=== PATIENT | male | born 1975 | race Caucasian/White ===

== ENCOUNTER 2017-03-25 19:38 | Emergency (ER) | payer OTHER ==
[~2017-03-25] VITALS: Ht 165.1 cm; Wt 72.6 kg
[2017-03-25 19:55] VITALS: BP 136/80
--- NOTE | 2017-03-25 20:14 | NUR ---
REPORTED TO [facility] AND SPOKEN TO [facility] AND ADVISED TO GO THEIR OFFICE, IF HE MAKE A COMPLAINT.
--- NOTE | 2017-03-25 20:52 | NUR ---
PT TAKEN TO BED 7
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
--- NOTE | 2017-03-25 20:57 | NUR ---
PT TAKEN TO XRAY
--- NOTE | 2017-03-25 21:20 | NUR ---
PT RETURN FROM XRAY
--- NOTE | 2017-03-25 21:30 | NUR ---
Fadumo awad in [facility] - 03/25/[address] Howell evaluating patient at bedside.
[2017-03-25] MEDS ORDERED: LIDOCAINE/EPI 1% 1:100000 20 ML VIAL INJ ONE (21:35)
[2017-03-25] MEDS ORDERED: LIDOCAINE 1% 50 ML ONE (21:49)
[2017-03-25] MEDS ORDERED: LIDOCAINE/EPI 2% 1:100000 20 ML VIAL INJ ONE (21:58)
--- NOTE | 2017-03-25 22:02 | NUR ---
Dr. Howell evaluating patient at bedside.
--- NOTE | 2017-03-25 22:05 | NUR ---
[facility] WITH EPI 2% 1:100,000 ADMINISTERED BY ER MD AT BEDSIDE.
--- NOTE | 2017-03-25 22:30 | NUR ---
N ADR NOTED TO [facility] WITH EPI.
[2017-03-25] MEDS ORDERED: BACITRACIN OINT 500 UNITS/GM PKT TP ONE (22:46)
[2017-03-25 22:51] VITALS: BP 128/74
--- NOTE | 2017-03-25 22:51 | NUR ---
Patient discharged with v/s stable. Written and verbal after care instructions given and explained. Patient verbalized understanding. Wheel Chair Assisted with by EMT. All questions addressed prior to discharge. Advised to follow up TO THIS ER IN 2 DAYS FOR WOUND RECHECK.
== END 2017-03-25 22:51 | disposition home or self-care (01) ==
LOC: MED 19:38
DX: S81.812A Laceration without foreign body, left lower leg, initial encounter (principal); V23.4XXA Motorcycle driver injured in collision with car, pick-up truck or van in traffic accident, initial encounter; Y93.89 Activity, other specified; Y92.488 Other paved roadways as the place of occurrence of the external cause; Y99.8 Other external cause status
CPT/HCPCS: 12002; 72170; 73110; 73140; 73590; 73610; 99284; J2001

== ENCOUNTER 2017-04-01 12:34 | Emergency (ER) | payer OTHER ==
[~2017-04-01] VITALS: Ht 165.1 cm; Wt 72.6 kg
[2017-04-01 13:00] VITALS: BP 140/82
--- NOTE | 2017-04-01 13:42 | NUR ---
Patient to bed 06.
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
--- NOTE | 2017-04-01 13:47 | NUR ---
Dr. Wheeler evaluating patient at bedside.
[2017-04-01 14:15] VITALS: BP 140/82
== END 2017-04-01 13:47 | disposition home or self-care (01) ==
LOC: MED 12:34
DX: S81.812D Laceration without foreign body, left lower leg, subsequent encounter (principal); L03.116 Cellulitis of left lower limb; X58.XXXD Exposure to other specified factors, subsequent encounter

== ENCOUNTER 2017-04-13 14:59 | Emergency (ER) | payer OTHER ==
[~2017-04-13] VITALS: Ht 165.1 cm; Wt 72.6 kg
[2017-04-13 15:08] VITALS: BP 131/76
--- NOTE | 2017-04-13 15:18 | NUR ---
PATIENT IS A 42 YO MALE BIB SELF FOR SUTURE REMOVAL TO LEFT ANTERIOR HEAD. WOUND IS WELL HEALED AND NO SIGNWS OF INFECTION REDNESS OR DRAINAGE. SEEN IN OVERFLOW BY DR LABOY AND SUTRURES REMOVED TOLERATED WELL.
[2017-04-13 15:25] VITALS: BP 131/76
--- NOTE | 2017-04-13 15:27 | NUR ---
Patient discharged with v/s stable. Written and verbal after care instructions given and explained. Patient verbalized understanding. Ambulatory with steady gait. All questions addressed prior to discharge. Advised to follow up with PMD.
== END 2017-04-13 15:27 | disposition home or self-care (01) ==
LOC: MED 14:59
DX: S81.811D Laceration without foreign body, right lower leg, subsequent encounter (principal); X58.XXXD Exposure to other specified factors, subsequent encounter
CPT/HCPCS: 90471; 90715; 99283

== ENCOUNTER 2018-03-03 07:13 | Emergency (ER) | payer MEDICAID, OTHER ==
[~2018-03-03] VITALS: Ht 165.1 cm; Wt 74.8 kg
[2018-03-03 07:35] VITALS: BP 155/113
[2018-03-03 10:15] VITALS: BP 143/87
== END 2018-03-03 08:56 | disposition home or self-care (01) ==
LOC: MED 07:13
DX: L90.5 Scar conditions and fibrosis of skin (principal); R03.0 Elevated blood-pressure reading, without diagnosis of hypertension
CPT/HCPCS: 99283

== ENCOUNTER 2018-05-27 09:27 | Emergency (ER) | payer SELFPAY ==
[~2018-05-27] VITALS: Ht 165.1 cm; Wt 73.9 kg
[2018-05-27 09:32] VITALS: BP 131/80
[2018-05-27 09:40] VITALS: BP 131/80
[2018-05-27] MEDS ORDERED: NEOMYCIN/POLYMYXIN/BACITRACIN 0.9 GM/1 PKT TP ONE ×2 (10:05→10:10)
== END 2018-05-27 10:44 | disposition home or self-care (01) ==
LOC: MED 09:27
DX: S71.112D Laceration without foreign body, left thigh, subsequent encounter (principal); S41.112D Laceration without foreign body of left upper arm, subsequent encounter; L08.9 Local infection of the skin and subcutaneous tissue, unspecified; R03.0 Elevated blood-pressure reading, without diagnosis of hypertension; X58.XXXD Exposure to other specified factors, subsequent encounter
CPT/HCPCS: 99282

== ENCOUNTER 2021-10-19 12:28 | Emergency (ER) | payer SELFPAY ==
[~2021-10-19] VITALS: Ht 165.1 cm; Wt 73.5 kg
[2021-10-19 12:32] VITALS: BP 126/89
[2021-10-19] MEDS: predniSONE 20 MG TAB PO ONE (13:15)
[2021-10-19] MEDS: LORATADINE 10 MG TAB PO ONE (13:15)
[2021-10-19] MEDS ORDERED: DIPH25TA53 PO (13:41)
[2021-10-19] MEDS ORDERED: PRED20TA5 PO (13:41)
== END 2021-10-19 13:57 | disposition home or self-care (01) ==
LOC: MED 12:28
DX: R21 Rash and other nonspecific skin eruption (principal); R07.89 Other chest pain; Z79.899 Other long term (current) drug therapy
CPT/HCPCS: 99283; J7512